=== PATIENT | male | born 1980 | race Caucasian/White ===

== ENCOUNTER 2022-10-08 09:43 | Emergency (ER) | payer OTHER, SELFPAY ==
[2022-10-08 09:54] VITALS: BP 146/101; PULSE 78; RESP 16; TEMP 36.3; O2SAT 100
--- NOTE | 2022-10-08 10:19 | ED.SKABFB ---
HPI - Skin/Abscess/Foreign Bdy General Chief complaint: Skin/Abscess/Foreign Body Stated complaint: Skin Sore/Finger Time Seen by Provider: 10/08/22 10:20 Source: patient, RN notes reviewed and old records reviewed Mode of arrival: ambulatory Limitations: no limitations History of Present Illness HPI narrative: 42-year-old male who presents to [facility] with complaints of redness swelling discomfort to right index finger. Patient reports he had a cut along the nail bed of his right distal index finger 3- 4 days ago and today he woke up acute swelling redness and pain at distal right index finger. Patient has taken any medications OTC his symptoms. Patient denies any fevers MD complaint: other (infected right distal index finger) Tetanus up to date: yes Treatments prior to arrival: none Related Data Home Medications Medication Instructions Recorded Confirmed dextroamphetamine-amphetamine ER 20 mg PO DAILY 10/08/22 10/08/22 20 mg 24hr capsule,extend release Allergies Allergy/AdvReac Type Severity Reaction Status Date / Time No Known Allergies Allergy Verified 10/08/22 10:09 Review of Systems Review of Systems: CONSTITUTIONAL: Denies fever, chills, or sweats. CARDIOVASCULAR: Denies chest pain, palpitations, or edema. RESPIRATORY: Denies cough or dyspnea. GASTROINTESTINAL: Denies abdominal pain, nausea, vomiting SKIN: Reports redness and swelling with discomfort to his distal right index finger, Patient has scabbed area along his nail bed of right index finger.. Denies purulent drainage, numbness, pain beyond proportion MUSCULOSKELETAL: Denies myalgia. NEUROLOGIC: Denies headache, numbness All systems reviewed & are unremarkable except as noted in HPI and below PMFSH Comments At time of signature, agree with nursing past medical, surgical, social and family history. There is no relevant family history pertinent to the presenting complaint Exam Narrative: GENERAL: Well-appearing, well-nourished, and in no acute distress. HEAD: Normocephalic, atraumatic. EYES: PERRLA and EOMI. ENT: Nares clear, no rhinorrhea or epistaxis. Mucous membranes moist.TM's normal with good light reflex, throat pink with no swelling or lesions. NECK: Supple.no lymphadenopathy CHEST: Clear to auscultation. No respiratory distress.SAO2 100% on room air HEART: Regular rate and rhythm. No murmur heard. Normal peripheral pulses. ABDOMEN: Soft, nontender, nondistended, normal active bowel sounds. EXTREMITIES: Normal range of motion. No edema. SKIN: Warm, dry. Erythema, induration, tenderness, warmth to his right index finger. No drainage noted, scab area on nail bed NEURO: No focal deficits. Alert and oriented x3. Course Course Emergency Course: Patient is aware of diagnosis, understands and agrees to treatment plan. Anticipatory guidance given. Patient agrees to follow-up as directed and is aware of reasons to seek care at the emergency department. Portions of this record may have been created with voice recognition software Level of Care: Express Care Visit Vital Signs Vital signs: Vital Signs Temperature 36.3 C L 10/08/22 09:54 Pulse Rate 78 10/08/22 09:54 Respiratory Rate 16 10/08/22 09:54 Blood Pressure 146/101 H 10/08/22 09:54 Pulse Oximetry 100 10/08/22 09:54 Oxygen Delivery Room Air 10/08/22 09:54 Temperature 36.3 C L 10/08/22 09:54 Pulse Rate 78 10/08/22 09:54 Respiratory Rate 16 10/08/22 09:54 Blood Pressure 146/101 H 10/08/22 09:54 Pulse Oximetry 100 10/08/22 09:54 Oxygen Delivery Room Air 10/08/22 09:54 Reviewed MDM - Skin/Abscess/Foreign Bdy MDM Narrative Medical decision making narrative: Does not appear at this time to be erythema multiforme, bullous, SJS, TEN; no evidence at this time to suggest RMSF, endocarditis or Lyme disease; patient looks well, nontoxic and is tolerating oral intake; no neurologic signs or symptoms; no headache, photophobia or neck pain; afebrile; appro
== END 2022-10-08 10:35 | disposition home or self-care (01) ==
PROVIDERS: Emergency Provider Registered Nurse; PCP Internal Medicine
DX: L03.011 Cellulitis of right finger (principal); F98.8 Other specified behavioral and emotional disorders with onset usually occurring in childhood and adolescence
CPT/HCPCS: 99213; G0463

== ENCOUNTER 2025-09-30 14:24 | Emergency (ER) | payer BC, SELFPAY ==
--- OUTSIDE RECORDS SUMMARY | 2025-09-30 14:28 | XMS_ITS | Clinical Summary ---
Author Organization [facility] Address [address] [place] [address] Phone Care Team Providers Care Surveying Teacher Name Role Phone Uche Blake MD Primary Care Provider [phone] Allergies Active Allergy Reactions Criticality Noted Date Comments No Known Drug Allergy Unknown 04/14/2013 Medications diphenhydrAMINE (BENADRYL) 25 MG Capsule Take 25 mg by mouth every 6 hours as needed. Active Naproxen Sodium (ALEVE PO) Take 220 mg by mouth as needed. Active Active Problems Problem Noted Date Diagnosed Date ADD (attention deficit disorder) without hyperac tivity 08/18/2013 Immunizations Immunization Administration Dates Next Due Covid-19, Mrna, Lnp-s, Pf, 30 Mcg/0.3 Ml Dose (P fizer) 01/25/2021,01/14/2021 Influenza Vaccine, Quadrivalent, PF 08/11/2019 TB Skin Test 07/07/2015 TDAP Vaccine 10/04/2018 Family History Medical History Relation Name Comments Cancer Maternal Grandmother Cancer Mother Relation Name Status Comments Maternal Grandmother Mother Social History Tobacco Use Types Packs/Day Years Used Date Smoking Tobacco: Never Smokeless Tobacco: Never Tobacco Cessation:Counseling Given: Not Answered Alcohol Use Standard Drinks/Week Comments No 0 (1 standard drink = 0.6 oz pur e alcohol) Sex and Gender Information Value Date Recorded Sex Assigned at Not on file Legal Sex Male 3:54 AM CHAINSTITCH PANTS OUTSEAMER Gender Identity Not on file Sexual Orientation Not on file Last Filed Vital Signs Vital Sign Reading Time Taken Comments Blood Pressure 116/88 01/07/2025 8:47 AM CDT Pulse 80 01/07/2025 8:47 AM CDT Temperature 37.2 C (98.9 F) 01/07/2025 8:47 AM CDT Respiratory Rate 16 01/07/2025 8:47 AM CDT Oxygen Saturation 97% 01/07/2025 8:47 AM CDT Inhaled Oxygen Concentration - - Weight 110.2 kg (243 lb) 01/07/2025 8:47 AM CDT Height 180.3 cm (5' 11) 02/25/2022 3:34 PM CDT Body Mass Index 33.89 02/25/2022 3:34 PM CDT Plan of Treatment Health Maintenance Due Date Last Done Comments Hepatitis C Virus (HCV) Screening 1979 Hepatitis B Immunization (1 of 3 - 19+ 3-dose series) 1998 Cologuard 2024 Colonoscopy 2024 Colorectal Cancer Screening 2024 Immunochemical Fecal Occult Blood 2024 Influenza Immunization (#1) 2025 08/11/2019 SARS-COV-2 Immunization ( season) 2025 02/15/2021, 01/25/2021, 01/14/2021 Td Immunization Every 10 Yea rs (Adults With 1 Tdap) 10/04/2028 10/04/2018 Respiratory Syncytial Virus (RSV) Immunization (Adult) (1 - 1-dose 75+ series) 2054 DTaP/Tdap/Td Immunization Discontinued 10/04/2018 Human Papillomavirus (HPV) Immunization (No Doses Required) Completed Meningococcal Immunization (ACWY) Aged Out No longer eligible based on patient's age to complete this topic Pneumococcal Immunization Combined Aged Out No longer eligible based on patient's age to complete this topic Rotavirus Immunization Aged Out No lo nger eligible based on patient's age to complete this topic Insurance [facility] Care Teams Surveying Teacher Relationship Specialty Start Date End Date Uche Blake MD [address] [place] [address] PCP - General 05/16/10
--- OUTSIDE RECORDS SUMMARY | 2025-09-30 14:28 | XMS_ITS | Clinical Summary ---
Author Organization [address] Address [address] [place] [address] Care Team Providers Care Salesperson Handbags Name Role Phone Enrrique Ferreira MD Primary Care Provider + Allergies No known active allergies Medications No known medications Active Problems No known active problems Social History Tobacco Use Types Packs/Day Years Used Date Smoking Tobacco: Never Assessed Sex and Gender Information Value Date Recorded Sex Assigned at Not on file Legal Sex Male 2:31 PM NEGATIVE TURNER Gender Identity Not on file Sexual Orientation Not on file Last Filed Vital Signs Vital Sign Reading Time Taken Comments Blood Pressure 110/80 10/02/2024 3:37 PM NEGATIVE TURNER Pulse 97 10/02/2024 3:37 PM NEGATIVE TURNER Temperature 37.1 C (98.7 F) 10/02/2024 3:37 PM NEGATIVE TURNER Respiratory Rate 19 10/02/2024 3:37 PM NEGATIVE TURNER Oxygen Saturation 97% 10/02/2024 3:37 PM NEGATIVE TURNER Inhaled Oxygen Concentration - - Weight 122.5 kg (270 lb) 10/02/2024 3:37 PM NEGATIVE TURNER Height 180.3 cm (5' 11) 10/02/2024 3:37 PM NEGATIVE TURNER Body Mass Index 37.66 10/02/2024 3:37 PM NEGATIVE TURNER Plan of Treatment Health Maintenance Due Date Last Done Comments Colon Cancer Screening-Colonoscopy 1979 Depression Screening 1979 Hepatitis C Screening 1979 Hepatitis B Screening 1997 Regular Well Visit/Exam 18-64 1997 Covid-19 Vaccine (2024-2 6 season) 2025 02/15/2021, 01/25/2021, 01/14/2021 Influenza Vaccine (#1) 2025 08/11/2019 DTaP/Tdap/Td Vaccine (2 - Td or Tdap) 10/04/2028 10/04/2018 HPV Vaccines Aged Out No longer eligi ble based on patient's age to complete this topic Pneumococcal vaccine <65 Aged Out No longer eligible based on patient's age to complete this topic Insurance [facility] [employer] BLUE ACCESS CHOICE [place] Care Teams Salesperson Handbags Relationship Specialty Start Date End Date Enrrique Ferreira MD PCP - General 10/25/20
--- OUTSIDE RECORDS SUMMARY | 2025-09-30 14:28 | XMS_ITS | Clinical Summary ---
Author Organization [facility] Address [address] [place] [address] Care Team Providers Care Surveillance Systems Analyst Name Role Phone Patient, None Per Primary Care Provider Unavaila ble Source Comments This disclosure is being made pursuant to the [employer] program and maynot contain all information available regarding this patient.[facility] Social History Tobacco Use Types Packs/Day Years Used Date Smoking Tobacco: Never Assessed Sex and Gender Information Value Date Recorded Sex Assigned at Not on file Legal Sex Male 2:56 PM CDT Gender Identity Not on file Sexual Orientation Not on file Plan of Treatment Health Maintenance Due Date Last Done Comments CT Colonography 1979 Colonoscopy 1979 Colorectal Cancer Screening 1979 Fecal DNA Test 1979 Lab-Cholesterol Screening 1979 Lab-Hepatitis C Screening 1979 Sigmoidoscopy 1979 Annual Wellness Visit 1997 Hepatitis B Vaccine (1 of 3 - 19+ 3-dose series) 1998 Tetanus/Pertussis Vaccine Teen/Adult (1 - Tdap) 1998 FOBT/FIT 1999 COVID-19 Vaccine ( - 2024-2 6 season) 2025 Influenza Vaccine (#1) 2025 Zoster (Shingles) Vaccine 50 + (1 of 2) 2029 RSV Adult (1 - 1-dose 75+ series) 2054 HIB Vaccine Aged Out No longer eligi ble based on patient's age to complete this topic HPV Vaccine (9-26yo & Shared Decision 27-45yo) Aged Out No longer eligible b ased on patient's age to complete this topic Hepatitis A Vaccine Aged Out No longe r eligible based on patient's age to complete this topic IPV Vaccine Aged Out No longer eligi ble based on patient's age to complete this topic Meningococcal Conjugate Vaccine Aged Out No longer eligible based on patient's age to complete this topic Pneumococcal Vaccines 0-49 yo Aged Out No longer eligible based on patient's age to complete this topic RSV < 20 Months Aged Out No longer el igible based on patient's age to complete this topic Care Teams Surveillance Systems Analyst Relationship Specialty Start Date End Date Patient, None Per PCP - General 05/08/14
--- OUTSIDE RECORDS SUMMARY | 2025-09-30 14:28 | XMS_ITS | Encounter Summary ---
Author Organization [facility] Address [address] [place] [address] Care Team Providers Care Retail Stock Clerk Name Role Phone Enrrique Ferreira MD Primary Care Provider Encounter Details Date Type Department Care Team (Late Contact Info) Description 08/25/2005 Outpatient Historical [facility] [address] [address] Enrrique Ferreira MD [address] [place] [address] [address] [place] [address] Social History Tobacco Use Types Packs/Day Years Used Date Smoking Tobacco: Never Assessed Sex and Gender Information Value Date Recorded Sex Assigned at Not on file Legal Sex Male 2:56 AM EMS COORDINATOR Gender Identity Not on file Sexual Orientation Not on file documented as of this encounter Last Filed Vital Signs Vital Sign Reading Time Taken Comments Blood Pressure 130/80 08/25/2005 2:30 PM EMS COORDINATOR Pulse - - Temperature 35.9 C (96.7 F) 08/25/2005 2:30 PM EMS COORDINATOR Respiratory Rate - - Oxygen Saturation - - Inhaled Oxygen Concentration - - Weight 90.7 kg (200 lb) 08/25/2005 2:30 PM EMS COORDINATOR Height - - Body Mass Index - - documented in this encounter Plan of Treatment Upcoming Encounters Date Type Department Care Team (Late Contact Info) Description 01/13/2026 4:00 PM CDT Office Visit [facility] [address] [place] [address] Enrrique Ferreira MD [address] [place] [address] [address] [phone] 04/29/2026 1:40 PM CDT Office Visit [facility] [address] [place] [phone] Enrrique Ferreira MD [address] [place] [address] [address] [phone] documented as of this encounter Visit Diagnoses Not on filedocumented in this encounter Additional Health Concerns Infection Onset Date Last Indicated Resolved Time R/O COVID-19 04/20/2021 04/20/2021 04/27/2021 1:16 AM CDT documented as of this encounter Care Teams Retail Stock Clerk Relationship Specialty Start Date End Date Enrrique Ferreira MD PCP - General Internal Medicine 07/07/15 documented as of this encounter
--- OUTSIDE RECORDS SUMMARY | 2025-09-30 14:28 | XMS_ITS | Clinical Summary ---
Author Organization [email or web address] [facility] [employer] [facility] Address [address] [place] [address] Care Team Providers Care Concrete Finishing Machine Operator Name Role Phone Pcp, No Primary Care Provider Social History Tobacco Use Types Packs/Day Years Used Date Smoking Tobacco: Never Assessed Sex and Gender Information Value Date Recorded Sex Assigned at Not on file Legal Sex Male 7:13 PM EDT Gender Identity Not on file Sexual Orientation Not on file Plan of Treatment Not on file Medical Devices Not on file Care Teams Concrete Finishing Machine Operator Relationship Specialty Start Date End Date PcpSandhya PCP - General Family Medicine 11/03/21
--- OUTSIDE RECORDS SUMMARY | 2025-09-30 14:28 | XMS_ITS | Encounter Summary ---
Author Organization [facility] Address [address] [place] [address] Care Team Providers Care Blast Furnace Checker Name Role Phone Enrrique Ferreira MD Primary Care Provider Encounter Details Date Type Department Care Team (Late st Contact Info) Description 03/15/2006 Orders Only [facility] Internal Medicine [address] [address] Enrrique Ferreira MD [address] [place] [phone] Social History Tobacco Use Types Packs/Day Years Used Date Smoking Tobacco: Never Assessed Sex and Gender Information Value Date Recorded Sex Assigned at Not on file Legal Sex Male 2:56 AM PHARMACEUTICAL REPRESENTATIVE Gender Identity Not on file Sexual Orientation Not on file documented as of this encounter Progress Notes * Enrrique Ferreira MD - 07/17/2008 7:12 AM CDT TIME:02:20 pm PATIENT`S HOME PHONE: PATIENT`S WORK PHONE: PATIENT`S INSURANCE: [employer] PPO WHO TOOK THE CALL: Chikis Casas S GENERAL INFORMATION ALTERNATIVE PHONE NUMBER: [phone] WHO CALLED: Patient`s mother called. PHARMACY NUMBER: [phone] call pt PROBLEMS: Sinus infection sneezing , face hurts COUGH:Patient complains of cough. hacking SECTION 1: REQUESTED ACTION browss 03/15/06 at 02:21 pm: pt does not have ins. right now MEDICATION REQUEST: Patient wants medications and can not come in. DOCTOR`S RESPONSE: maco 03/15/06 at 02:29 pm MEDICATIONS: Call in to Pharmacy ZITHROMAX Z-MANINDER ORAL TABLET 250 MG, DIRECTED, 1 Dispensed, status: NEW PRESCRIPTION, 03/15/2006. FINAL ACTION: omar 03/15/06 at 02:32 pm Left message on patient`s recorder or with a family member 03/15/2006 at 02:32 pm. Called pharmacy at 03/15/06 at 02:32 pm. Electronically Signed by: Mildred Boyd on March documented in this encounter Plan of Treatment Upcoming Encounters Date Type Department Care Team (Late st Contact Info) Description 01/13/2026 4:00 PM CDT Office Visit [address], [place] [address] Enrrique Ferreira MD [address] [place] [phone] 04/29/2026 1:40 PM CDT Office Visit [address], [place] [address] Enrrique Ferreira MD [address] [place] [phone] documented as of this encounter Visit Diagnoses Not on filedocumented in this encounter Additional Health Concerns Infection Onset Date Last Indicated Resolved Time R/O COVID-19 04/20/2021 04/20/2021 04/27/2021 1:16 AM CDT documented as of this encounter Care Teams Blast Furnace Checker Relationship Specialty Start Date End Date Enrrique Ferreira MD PCP - General Internal Medicine 07/07/15 documented as of this encounter
--- OUTSIDE RECORDS SUMMARY | 2025-09-30 14:28 | XMS_ITS | Clinical Summary ---
Author Organization [facility] Address [address] [place] [address] Care Team Providers Care Eligibility Specialist Name Role Phone Enrrique Ferreira MD Primary Care Provider Allergies No known active allergies Medications sulfamethoxazole -trimethoprim (BACTRIM DS) 800-160 mg tablet Take 1 Tablet by mouth 2 times daily. 20 Tablet 05/06/2025 Active Active Problems Patient Care Coordination No te Formatting of this note migh t be different from the original. Prev 05/06/25 Problem Noted Date Diagnosed Date Other sleep apnea 11/14/2022 Vitamin D deficiency 10/09/2018 Attention deficit disorder (ADD) without hyperac tivity 10/04/2018 Abnormal weight gain 07/07/2015 Resolved Problems Problem Noted Date Diagnosed Date Resolved Date ACUTE SINUSITIS NOS 08/02/2005 07/07/20 15 Encounters Date Type Department Care Team Description 07/15/2025 4:20 PM CDT Office Visit [facility] [address] [place] [phone] Enrrique Ferreira MD Need for immunization against influenza (Primary Dx); Skin lesions from Last 3 Months Immunizations Immunization Administration Dates Next Due (ADACEL/BOOSTRIX)(10 YR UP) TDAP VACCINE, 0.5ML, IM 10/04/2018 (PFIZER)(12 YR UP) COVID-19 VACCINE - EMERGENCY USE AUTHORIZATION, MRNA, [id number](PF) 30 MCG/0.3 ML IM SUSP 02/15/2021,01/25/2021,01/14/2021 INFLUENZA VACCINE QUADRIVALE NT 6 MOS UP PF IM 08/11/2019 INFLUENZA VACCINE TRIVALENT SPLIT VIRUS, (6 MOS UP), 0.5ML (PF), IM 07/15/2025 Skin Test TB 07/07/2015 Family History Medical History Relation Name Comments Hypertension Father Relation Name Status Comments Father primary pulm hy pertension Mother Alive Social History Tobacco Use Types Packs/Day Years Used Date Smoking Tobacco: Never Passive Smoke Exposure: Never Smokeless Tobacco: Never Tobacco Cessation:Counseling Given: No Alcohol Use Standard Drinks/Week Comments No 0 (1 standard drink = 0.6 oz pur e alcohol) Sex and Gender Information Value Date Recorded Sex Assigned at Not on file Legal Sex Male 2:56 AM QUILL WINDER Gender Identity Not on file Sexual Orientation Not on file Last Filed Vital Signs Vital Sign Reading Time Taken Comments Blood Pressure 136/84 07/15/2025 4:08 PM CDT Pulse 70 07/15/2025 4:08 PM CDT Temperature 36.8 C (98.2 F) 05/15/2023 12:03 PM CDT Respiratory Rate 18 08/11/2019 2:22 PM QUILL WINDER Oxygen Saturation 97% 07/15/2025 4:08 PM CDT Inhaled Oxygen Concentration - - Weight 111.1 kg (245 lb) 07/15/2025 4:08 PM CDT Height 180.3 cm (5' 11) 07/15/2025 4:08 PM CDT Body Mass Index 34.17 07/15/2025 4:08 PM CDT Plan of Treatment Upcoming Encounters Date Type Department Care Team (Late st Contact Info) Description 01/13/2026 4:00 PM CDT Office Visit [address] [place] [address] Enrrique Ferreira MD [address] [place] [address] [address] [place] [phone] 04/29/2026 1:40 PM CDT Office Visit [address] [place] [address] Enrrique Ferreira MD [address] [place] [phone] Health Maintenance Due Date Last Done Comments HEPATITIS B VACCINES (1 of 3 - 19+ 3-dose series) 1998 Pre-Diabetes and Diabetes Screening 04/04/2022 04/04/2019 COLORECTAL SCREENING 2024 Colorectal Cancer Screening 2024 FIT-DNA Q 3 years 2024 FIT/FOBT Q 1 year 2024 Flex Sig/CT Colonography Q 5 years 2024 COVID-19 Vaccine (2024-2 6 season) 2025 02/15/2021, 01/25/2021, 01/14/2021 DTAP/TDAP/TD VACCINES (2 - T d or Tdap) 10/04/2028 10/04/2018 Preventative Visit- Commercial Completed 0 05/06/2025, 11/14/2022, 04/12/2022, Additional history exists INFLUENZA VACCINE Completed 07/15/2025, 08/11/2019 HPV VACCINES (No Doses Required) Completed Procedures Procedure Name Priority Date/Time Associated Diagnosis Comments HEMOGLOBIN A1C Routine 04/04/2019 8:59 AM CDT Morbid obesity with body mass index of 40.0-49.9 (CMS/HCC) from Last 3 Months or Most Recently Relevant to Health Maintenance Results * HEMOGLOBIN A1C (04/04/2019 8:59 AM CDT) HEMOGLOBIN A1C 5.2 4.8 - 5.6 % [facility] Comment: Prediabetes: 5.7 - 6.4 Diabetes: >6.4 Glycemic control for adults with diabetes: <7.0 Blood 04/04/2019 8:59 AM CDT 04/04/2019 Narrative [facility] - 04/05/2019 7:09 AM CDT Performed at: [address] [place] [id number] Obstetrical Tech: Julian Stephenson PhD, Phone: [phone] us Enrrique Ferreira MD CHEMISTRY ORDERABLES Final Re sult [facility] [phone] from Last 3 Months or Most Recently Relevant to Health Maintenance Insurance [facility] BLUE ACCESS CHOICE Care Teams Eligibility Specialist Relationship Specialty Start Date End Date Enrrique Ferreira MD PCP - General Internal Medicine 07/07/15
--- OUTSIDE RECORDS SUMMARY | 2025-09-30 14:28 | XMS_ITS | Encounter Summary ---
Author Organization [facility] Address [address] [place] [address] Care Team Providers Care Head Rose Grower Name Role Phone Enrrique Ferreira MD Primary Care Provider Encounter Details Date Type Department Care Team (Late Contact Info) Description 08/02/2005 Outpatient Historical [facility] Internal Medicine [address] [address] Enrrique Ferreira MD [address] [place] [address] [address] [place] [address] Social History Tobacco Use Types Packs/Day Years Used Date Smoking Tobacco: Never Assessed Sex and Gender Information Value Date Recorded Sex Assigned at Not on file Legal Sex Male 2:56 AM PEARL DIVER Gender Identity Not on file Sexual Orientation Not on file documented as of this encounter Last Filed Vital Signs Vital Sign Reading Time Taken Comments Blood Pressure 130/80 08/02/2005 2:00 PM CDT Pulse - - Temperature 36.7 C (98 F) 08/02/2005 2:00 PM CDT Respiratory Rate - - Oxygen Saturation - - Inhaled Oxygen Concentration - - Weight 90.3 kg (199 lb) 08/02/2005 2:00 PM CDT Height - - Body Mass Index - - documented in this encounter Plan of Treatment Upcoming Encounters Date Type Department Care Team (Late Contact Info) Description 01/13/2026 4:00 PM CDT Office Visit [facility] Primary Care [address] [place] [address] Enrrique Ferreira MD [address] [place] [address] [address] [phone] 04/29/2026 1:40 PM CDT Office Visit [facility] [address] [place] [phone] nErrique Ferreira MD [address] [place] [address] [address] [phone] documented as of this encounter Visit Diagnoses Not on filedocumented in this encounter Additional Health Concerns Infection Onset Date Last Indicated Resolved Time R/O COVID-19 04/20/2021 04/20/2021 04/27/2021 1:16 AM CDT documented as of this encounter Care Teams Head Rose Grower Relationship Specialty Start Date End Date Enrrique Ferreira MD PCP - General Internal Medicine 07/07/15 documented as of this encounter
[2025-09-30 14:30] VITALS: BP 138/92; PULSE 97; RESP 20; TEMP 36.6; O2SAT 98
--- NOTE | 2025-09-30 14:54 | ED.URI ---
HPI - URI/Sore Throat General Chief Complaint: Upper Respiratory Infection Stated Complaint: covid exposure Time Seen by Provider: 09/30/25 14:54 Source: patient, RN notes reviewed and old records reviewed Mode of arrival: ambulatory Limitations: no limitations History of Present Illness HPI Narrative: 45 Year old male who presents to [facility] with complaints of 3 day history of headache, with some body aches and fevers and chills and for the last day he has had cough with some nasal drainage and sore throat.. Patient reports that his is home with COVID at this time. Patient states that his tested positive in this clinic on 09/26/2025. He reports that he has taken some Ibuprofen for his symptoms. MD elicited complaint: cough, rhinorrhea, nasal congestion and other (headache body aches and fever ) Onset (ago): day(s) (3) Severity: moderate Able to tolerate fluids by mouth: Yes Treatments prior to arrival: ibuprofen Related Data Allergies Allergy/AdvReac Type Severity Reaction Status Date / Time No Known Allergies Allergy Verified 09/30/25 14:33 Review of Systems Review of Systems: CONSTITUTIONAL:reports malaise, chills, sweats, or fever. EYES: Denies visual changes, redness, or discharge. ENT: Reports rhinorrhea, congestion, sinus pain, no otalgia and no sore throat. CARDIOVASCULAR: Denies chest pain, palpitations, or edema. RESPIRATORY: Reports cough.? Denies dyspnea. GASTROINTESTINAL: Denies abdominal pain, nausea, vomiting, diarrhea SKIN: Denies rash or itching. MUSCULOSKELETAL: Reports myalgia. NEUROLOGIC: Reports headache. All systems reviewed & are unremarkable except as noted in HPI and below PMFSH Past Medical History Medical History (Updated 10/02/25 @ 19:34 by Bren Shelton APRN) Cellulitis Social History Social History (Updated 10/02/25 @ 19:29 by Bren Shelton APRN) Smoking status: Never smoker Alcohol intake: current Alcohol use details: social Substance use type: does not use Living arrangements: with family Gender identity (if verbalized by the patient): Male Comments At time of signature, agree with nursing past medical, surgical, social and family history. There is no relevant family history pertinent to the presenting complaint Exam Narrative: GENERAL: Illl-appearing, well-nourished, and in no acute distress. HEAD: Normocephalic EYES: PERRLA, conjunctivae clear ENT: Nares clear, turbinates edematous and erythematous, clear discharge sinus pressure and headache.Mucous membranes moist. TM pearly coello with dull light reflex bilaterally; no tragal tenderness. Oropharynx erythematous without lesions. Tonsils not enlarged and without exudate, no drooling, no hoarseness, no trismus, uvula midline.post nasal drainage. NECK: Supple. No lymphadenopathy CHEST: Clear to auscultation, breath sounds equal. No wheezing, rhonchi, rales, or stridor. No respiratory distress, speaks in full sentences.cough noted nonproductive SAO2 98% on room air HEART: Regular rate and rhythm. No murmur heard. SKIN: Warm, dry, no rash. NEURO: Alert and oriented x3. PSYCH: Normal mood and affect Course Course Level of Care: Express Care Visit Vital Signs Vital signs: Vital Signs Temperature 36.6 C 09/30/25 14:30 Pulse Rate 97 09/30/25 14:30 Respiratory Rate 20 09/30/25 14:30 Blood Pressure 138/92 H 09/30/25 14:30 Pulse Oximetry 98 09/30/25 14:30 Oxygen Delivery Room Air 09/30/25 14:30 Temperature 36.6 C 09/30/25 14:30 Pulse Rate 97 09/30/25 14:30 Respiratory Rate 20 09/30/25 14:30 Blood Pressure 138/92 H 09/30/25 14:30 Pulse Oximetry 98 09/30/25 14:30 Oxygen Delivery Room Air 09/30/25 14:30 reviewed [facility] Narrative Medical decision making narrative: Patient tested negative for COVID, Flu and Strep with culture sent. Patient reports 3 day history of headache, bodyaches fever, cough and sinus drainage. is home with COVID.Patient instructed to use OTC medications to control symptoms with medrol dose pack RX to patient's pharmacy. Anticipatory guidance and reasons to seek care at the ED reviewed. Differential Diagnosis Differential Diagnosis: Differential diagnostic considerations for upper respiratory infection include upper respiratory infection, croup, otitis media, sinusitis, viral infection, bronchitis, influenza, pharyngitis, strep, uvulitis.? Lab Data [facility] Lab Attestation statement: I personally reviewed the patient's lab results. Lab results narrative: strep screen negative, culture sent, COVID antigen negative, Influenza A&B negative Labs: Lab Results 09/30/25 09/30/25 Range/Units 14:32 15:08 POC Influenza A Ag Negative (Negative) POC Influenza B Ag Negative (Negative) POC SARS CoV-2 Ag Negative (Negative) POC Grp A Strep Screen Negative (Negative) reviewed Critical Care Time Critical Care Time Critical Care Time: No Discharge Plan Discharge Clinical Impression: Pharyngitis Upper respiratory infection Qualifiers: URI type: unspecified URI Qualified Code(s): J06.9 - Acute upper respiratory infection, unspecified Patient Disposition: Home Condition: Stable Instructions: Pharyngitis (ED), Upper Respiratory Infection (ED) Additional Instructions: Increase fluids especially juices and water [id number] cough and cold medicine of your choice for your symptoms Tylenol ibuprofen for any fever pain Zyrtec Claritin or Simran include Coricidin brand decongestant Steroids as directed--take with food heat to the face 20-30 minutes 4-6 times a day for pain Salt water gargles, throat lozenges or throat sprays as desired If your symptoms persist, change or worsen significantly before you can contact your personal physician then please, without delay, go to the emergency department for further evaluation. Follow-up with PCP in 7-10 days or sooner if needed Follow up with PCP soon in regards to your blood pressure which is elevated above threshold for referral. Blood pressure above 120/80 may indicate pre-hypertension. 138/92 all testing negative culture for strep sent for further analysis Patient Language: [place] Prescriptions: New methylprednisolone [Medrol (Dylan)] 4 mg tablets,dose pack See Rx Instructions .ROUTE .COMPLEX Qty: 21 0RF Rx Instructions: orally per package directions Follow-up/Referrals: Jhon,Enrrique Angel MD [Primary Care Provider] Time of Disposition: 15:17 Quality [place] Coma Scale Eyes: Open Verbal: Oriented and Alert Motor: Follows Commands [place] Coma Total Score: 15
[2025-09-30 15:06] LABS: EDCOVIDSCREEN Negative (Negative)
[2025-09-30 15:07] LABS: EDINFLUASCREEN Negative (Negative); EDINFLUBSCREEN Negative (Negative)
[2025-09-30 15:10] LABS: EDSTREPNEGPOS1 Negative (Negative)
== END 2025-09-30 15:27 | disposition home or self-care (01) ==
PROVIDERS: Emergency Provider Registered Nurse; PCP Internal Medicine
DX: J02.9 Acute pharyngitis, unspecified (principal); J06.9 Acute upper respiratory infection, unspecified; Z20.822 Contact with and (suspected) exposure to COVID-19
CPT/HCPCS: 87081; 87426; 87804; 87880; 99213; G0463